=== PATIENT | female | born 1940 | race Caucasian/White ===

== ENCOUNTER 2016-07-25 11:23 | Inpatient (IN) | payer MEDICARE, OTHER ==
[~2016-07-25] VITALS: Ht 154.9 cm; Wt 76.2 kg
[2016-07-25 14:50] VITALS: BP 161/117
--- NOTE | 2016-07-25 14:50 | NUR ---
ADMISSION NOTES/ PATIENT 65 Y/OLD FEMALE DIRECT ADMIT FROM [facility] BROUGHT BY AMBULANCE ON 5150 HOLD, DX OF SI, DEPRESSION, DTS, PSYCHOSIS NOS. ACCORDING ON HOLD PATIENT CUTTING HER WRIST AND EXPLAINS SHE ARE SO IN A MOMENT OF DESPERATION. ALSO VERBALIZED FEELING FRUSTRATED ABOUT HER PHYSICAL LIMITATION AND SHE CUT HERSELF IN ORDER TO FEEL WHAT PAIN FEELS LIKE. ON FACE TO FACE ASSESSMENT PATIENT A/O X2/3, IRRITABLE, DISORGANIZED THOUGHTS, ANXIOUS, DEPRESS, IMPULSIVE. V/S TAKE BP -167/100, P-90, R-19, 02-98 ROOM AIR, T-98. PATIENT DENIED SI/HI AT THIS TIME, NO RESPIRATORY DISTRESS. SKIN ASSESSMENT DONE, PICTURE TAKEN. PATIENT'S RIGHT HAND BOOK GIVEN, AND EXPLAINED TO. PT AMBULATORY USING WALKER, CONTINENT. SAFETY PRECAUTION MAINTAINED ALL THE TIME. MRSA OF NARES TAKEN. PT REFUSED SIGN PAPERWORK. Dr. YOUNGER, AND DR BURKS AWARE OF NEW PATIENT , AND NEW MEDICATION. CONTINUED MONITORING.
[2016-07-25] MEDS ORDERED: MAGNESIUM HYDROXIDE 30 ML UDC PO PRN (15:00)
[2016-07-25] MEDS ORDERED: ACETAMINOPHEN 325 MG TABLET PO PRN ×2 (15:00→22:30)
[2016-07-25 15:15] VITALS: BP 155/100
[2016-07-25] MEDS: LORAZEPAM 0.5 MG TABLET PO PRN (16:28)
--- NOTE | 2016-07-25 16:28 | NUR ---
ADMINISTERED ATIVAN 0.5 MG PO PRN FOR ANXIETY, DEPRESSION, IRRITABLE, PARANOIA, V/S TAKE BP-161/117, P-90, CONTINUED MONITORING.
[2016-07-25] MEDS ORDERED: DULO20CA PO (18:49)
[2016-07-25] MEDS ORDERED: TRAZ-144 PO ×2 (18:49→20:06)
[2016-07-25] MEDS ORDERED: DIAZ5TAB PO ×2 (18:49→20:06)
--- NOTE | 2016-07-25 19:30 | NUR ---
RN NOTE; RECEIVED PT AWAKE AND ALERT. WALKING DOWN THE HALLWAY USING HER WALKER. BREATHING EVENLY. NO SOB. NO DISTRESS. NO BEHAVIORAL PROBLEM. W/ C/O CHRONIC KNEE PAIN. NEEDS ATTENDED. WILL CONT TO MONITOR
[2016-07-25 19:31] VITALS: BP 153/100
[2016-07-25] MEDS ORDERED: DEXT15DR6 EACHEYE (19:46)
[2016-07-25] MEDS ORDERED: DOCU-170 PO (19:46)
[2016-07-25] MEDS ORDERED: CHLO473M2 MM (19:46)
[2016-07-25] MEDS ORDERED: BISA5TAB10 PO (19:46)
[2016-07-25] MEDS ORDERED: CALC-911 PO (19:46)
[2016-07-25] MEDS ORDERED: DULO20CA18 PO (19:46)
[2016-07-25] MEDS ORDERED: DIPH25CA83 PO (19:46)
[2016-07-25] MEDS ORDERED: SALI45LI MM (19:46)
[2016-07-25] MEDS ORDERED: BISA10SU8 RC (19:46)
[2016-07-25] MEDS ORDERED: SENN8.6T60 PO (19:46)
[2016-07-25] MEDS ORDERED: FLUT15.88 NS (19:46)
[2016-07-25] MEDS ORDERED: PHEN1SUP RC (19:46)
[2016-07-25] MEDS ORDERED: LIDO30AD10 TP (19:59)
[2016-07-25] MEDS ORDERED: PILO5TAB PO (19:59)
[2016-07-25] MEDS ORDERED: HYDR28.32 TP (19:59)
[2016-07-25] MEDS ORDERED: OXYC20TA58 PO (19:59)
[2016-07-25] MEDS ORDERED: HYDR-552 PO (19:59)
[2016-07-25] MEDS ORDERED: OXYB10TA PO (19:59)
[2016-07-25] MEDS ORDERED: OXYC5CAP3 PO (19:59)
[2016-07-25] MEDS ORDERED: PANT40TA2 PO (19:59)
[2016-07-25] MEDS ORDERED: GABA400C PO (19:59)
[2016-07-25] MEDS ORDERED: CALC500T13 PO (20:06)
[2016-07-25] MEDS ORDERED: SENN-18 PO (20:06)
[2016-07-25] MEDS ORDERED: ACET325T53 PO (20:06)
[2016-07-25] MEDS ORDERED: CHOL100040 PO (20:06)
[2016-07-25 20:45] VITALS: BP 152/96
[2016-07-25] MEDS: TEMAZEPAM 7.5 MG CAPSULE PO PRN (21:38)
[2016-07-25] MEDS ORDERED: diphenhydrAMINE HCL 25 MG CAPSULE PO PRN (22:30)
[2016-07-25] MEDS ORDERED: HYDROCORTISONE 1% CREAM 28.35 GM TUBE TP PRN (22:30)
[2016-07-25] MEDS ORDERED: BISACODYL SUPP (10 MG) 10 MG/SUPP.RECT SUPP.RECT RC PRN (22:30)
[2016-07-25] MEDS ORDERED: BISACODYL (5 MG) 5 MG TABLET.DR PO PRN (22:30)
[2016-07-25] MEDS ORDERED: PHENYLEPHRINE/SHARK LIVER 1 EA SUPP.RECT RC PRN (22:30)
[2016-07-25] MEDS ORDERED: CALCIUM CARBONATE 500 MG TAB.CHEW PO PRN (22:30)
[2016-07-25] MEDS ORDERED: SENNOSIDES 8.6 MG TABLET PO PRN (22:30)
--- NOTE | 2016-07-25 22:47 | NUR ---
PT WAS SEEN AND EXAMINED BY JUAN YI . MED RECON DONE.
[2016-07-26] MEDS ORDERED: HYDROCODONE/APAP 5/325MG 1 EACH TABLET ONE (03:55)
[2016-07-26] MEDS: HYDROCODONE/APAP 5/325MG 1 EACH TABLET PO PRN ×3 (04:00→20:27)
--- NOTE | 2016-07-26 04:02 | NUR ---
[place] 5 given as ordered for pt's c/o bilateral knee pain and crying . will cont to monitor .
--- NOTE | 2016-07-26 06:30 | NUR ---
RN NOTE; PT AWAKE AND ALERT. AMBULATING W/ WALKER. NO C/O PAIN OR DISCOMFORT AT TIS TIME. NO ACUTE EXCHANGES DURING THE NIGHT . ASSISTED W/ ADLS. BED LOW LOCKED. CALL BUTTON WITHIN REACH. WILL CONT TO MONITOR AND WILL ENDORSE TO AM SHIFT FOR FRANCIE.
[2016-07-26 08:00] VITALS: BP 148/93
[2016-07-26 08:17] LABS: ALBUMIN 3.6 g/dL (3.4-5.0); BILIRUBIN,TOTAL 0.7 mg/dL (0.2-1.0); CALCIUM, SERUM 8.7 mg/dL (8.5-10.1); CREATININE 0.6 mg/dL (0.6-1.3); POTASSIUM 3.3 mmol/L (3.5-5.1); TOTAL PROTEIN, SERUM 6.8 g/dL (6.4-8.2)
[2016-07-26] MEDS ORDERED: oxyCODONE HCL SR 10MG TAB.SR.12H PO SCH (09:00)
[2016-07-26] MEDS ORDERED: GABAPENTIN 400 MG CAPSULE PO SCH (09:00)
[2016-07-26] MEDS: LIDOCAINE 5% (PATCH) 1 EA PATCH TP SCH (09:00)
[2016-07-26] MEDS: CALCIUM CARBONATE 500 MG TAB.CHEW PO SCH ×2 (09:22→19:59)
[2016-07-26] MEDS: CHLORHEXIDINE GLUCONATE 15 ML UDC MM SCH ×3 (09:22→16:54)
[2016-07-26] MEDS: PANTOPRAZOLE 40 MG TABLET.DR PO SCH (09:22)
[2016-07-26] MEDS: CHOLECALCIFEROL 1,000 UNIT TABLET (VIT D3) PO SCH (09:22)
[2016-07-26] MEDS: DOCUSATE SODIUM 100 MG CAPSULE PO SCH ×2 (09:22→16:54)
[2016-07-26] MEDS: POLYVINYL ALCOHOL 15 ML BOTTLE EACHEYE SCH ×2 (10:03→17:37)
[2016-07-26] MEDS: FLUTICASONE PROPIONATE 16 GM BOTTLE NS SCH (10:03)
[2016-07-26] MEDS: SERTRALINE HCL 25 MG TABLET PO SCH (15:38)
[2016-07-26] MEDS: GABAPENTIN 400 MG CAPSULE PO SCH ×3 (15:38→20:25)
[2016-07-26 15:57] VITALS: BP 146/95
[2016-07-26] MEDS: SENNOSIDES 8.6 MG TABLET PO SCH (20:00)
[2016-07-26] MEDS: TRAZODONE 50 MG TABLET PO SCH (20:00)
[2016-07-27 08:00] VITALS: BP 148/76
[2016-07-27] MEDS: SERTRALINE HCL 25 MG TABLET PO SCH (08:24)
[2016-07-27] MEDS: CHOLECALCIFEROL 1,000 UNIT TABLET (VIT D3) PO SCH (08:24)
[2016-07-27] MEDS: GABAPENTIN 400 MG CAPSULE PO SCH ×3 (08:24→17:05)
[2016-07-27] MEDS: CALCIUM CARBONATE 500 MG TAB.CHEW PO SCH ×2 (08:24→21:22)
[2016-07-27] MEDS: PANTOPRAZOLE 40 MG TABLET.DR PO SCH (08:24)
[2016-07-27] MEDS: DOCUSATE SODIUM 100 MG CAPSULE PO SCH ×2 (08:24→17:05)
[2016-07-27] MEDS: LIDOCAINE 5% (PATCH) 1 EA PATCH TP SCH (08:25)
[2016-07-27] MEDS: FLUTICASONE PROPIONATE 16 GM BOTTLE NS SCH (08:25)
[2016-07-27] MEDS: POLYVINYL ALCOHOL 15 ML BOTTLE EACHEYE SCH ×2 (08:25→17:04)
[2016-07-27] MEDS: CHLORHEXIDINE GLUCONATE 15 ML UDC MM SCH ×3 (08:25→17:05)
[2016-07-27] MEDS: HYDROCODONE/APAP 5/325MG 1 EACH TABLET PO PRN ×4 (08:32→21:23)
[2016-07-27] MEDS ORDERED: POTASSIUM CHLORIDE 20 MEQ TAB.PRT.SR PO ONE (12:00)
--- NOTE | 2016-07-27 16:08 | NUR ---
Initial discharge plan :Pt. is a resident at [facility] [id number] and wants to return upon discharge. SW attempted to confirm readmission but not able to speak with admission at this time. SW will try again later. SW will work with pt and will help form safe and proper discharge.
[2016-07-27 20:00] VITALS: BP 140/73
[2016-07-27] MEDS: TEMAZEPAM 7.5 MG CAPSULE PO PRN (21:24)
[2016-07-27] MEDS: SENNOSIDES 8.6 MG TABLET PO SCH (21:24)
[2016-07-27] MEDS: TRAZODONE 50 MG TABLET PO SCH (21:24)
[2016-07-28] MEDS: HYDROCODONE/APAP 5/325MG 1 EACH TABLET PO PRN (07:02)
[2016-07-28 07:23] LABS: CALCIUM, SERUM 9.5 mg/dL (8.5-10.1); CREATININE 0.7 mg/dL (0.6-1.3)
[2016-07-28] MEDS: CHLORHEXIDINE GLUCONATE 15 ML UDC MM SCH ×3 (08:52→17:42)
[2016-07-28] MEDS: GABAPENTIN 400 MG CAPSULE PO SCH ×3 (08:53→17:42)
[2016-07-28] MEDS: DOCUSATE SODIUM 100 MG CAPSULE PO SCH ×2 (08:53→17:42)
[2016-07-28] MEDS: SERTRALINE HCL 25 MG TABLET PO SCH (08:53)
[2016-07-28] MEDS: PANTOPRAZOLE 40 MG TABLET.DR PO SCH (08:54)
[2016-07-28] MEDS: CHOLECALCIFEROL 1,000 UNIT TABLET (VIT D3) PO SCH (08:54)
[2016-07-28] MEDS: CALCIUM CARBONATE 500 MG TAB.CHEW PO SCH ×2 (08:54→21:16)
[2016-07-28] MEDS: FLUTICASONE PROPIONATE 16 GM BOTTLE NS SCH (09:00)
[2016-07-28] MEDS: POLYVINYL ALCOHOL 15 ML BOTTLE EACHEYE SCH ×2 (09:00→17:43)
[2016-07-28] MEDS: LIDOCAINE 5% (PATCH) 1 EA PATCH TP SCH (09:00)
[2016-07-28] MEDS: LORAZEPAM 0.5 MG TABLET PO PRN (09:04)
--- NOTE | 2016-07-28 09:04 | NUR ---
administered ativan 0.5 mg po prn for anxiety , v/s taken, p-77, bp-155/60, continued monitoring.
[2016-07-28] MEDS ORDERED: oxyCODONE HCL SR 10MG TAB.SR.12H PO PRN (09:30)
--- NOTE | 2016-07-28 11:09 | NUR ---
DR. YOUNGER GAVE AN ORDER FOR THE DENIAL RIGHTS FOR ROOM SEARCH TO LOOK FOR THE MISSING CORDLESS PHONES.
[2016-07-28] MEDS: oxyCODONE IR immediate release 5 MG CAPSULE PO PRN (12:49)
--- NOTE | 2016-07-28 12:50 | NUR ---
ADMINISTERED OXY IR 5 MG PO PRN FOR CHRONIC GENERALIZED PAIN 12/16, V/S TAKE BP - 145/67, P-77, ALSO ADMINISTERED MAALOX 30 MG/ML PO PRN FOR STOMACHACHE, CONTINUED MONITORING.
[2016-07-28] MEDS: MAG HYDROX/AL HYDROX/SIMETH 30 ML UDC PO PRN (12:57)
[2016-07-28 16:00] VITALS: BP 153/75
[2016-07-28] MEDS: TRAZODONE 50 MG TABLET PO SCH (21:17)
[2016-07-28] MEDS: oxyCODONE HCL SR 20MG TAB.SR.12H PO SCH (21:17)
[2016-07-28] MEDS: SENNOSIDES 8.6 MG TABLET PO SCH (21:18)
[2016-07-28] MEDS: TEMAZEPAM 7.5 MG CAPSULE PO PRN (23:11)
[2016-07-29 08:00] VITALS: BP 108/67
[2016-07-29] MEDS: GABAPENTIN 400 MG CAPSULE PO SCH ×3 (08:26→17:35)
[2016-07-29] MEDS: CHOLECALCIFEROL 1,000 UNIT TABLET (VIT D3) PO SCH (08:26)
[2016-07-29] MEDS: oxyCODONE HCL SR 20MG TAB.SR.12H PO SCH ×2 (08:26→22:17)
[2016-07-29] MEDS: DOCUSATE SODIUM 100 MG CAPSULE PO SCH ×2 (08:26→17:35)
[2016-07-29] MEDS: CHLORHEXIDINE GLUCONATE 15 ML UDC MM SCH ×3 (08:26→17:35)
[2016-07-29] MEDS: SERTRALINE HCL 25 MG TABLET PO SCH (08:27)
[2016-07-29] MEDS: CALCIUM CARBONATE 500 MG TAB.CHEW PO SCH ×2 (08:27→21:22)
[2016-07-29] MEDS: PANTOPRAZOLE 40 MG TABLET.DR PO SCH (08:27)
[2016-07-29] MEDS: FLUTICASONE PROPIONATE 16 GM BOTTLE NS SCH (08:44)
[2016-07-29] MEDS: POLYVINYL ALCOHOL 15 ML BOTTLE EACHEYE SCH ×2 (08:45→17:36)
[2016-07-29] MEDS: LIDOCAINE 5% (PATCH) 1 EA PATCH TP SCH (08:45)
[2016-07-29] MEDS: MAG HYDROX/AL HYDROX/SIMETH 30 ML UDC PO PRN (13:00)
--- NOTE | 2016-07-29 13:01 | NUR ---
ADMINISTERED MAALOX 30 MG/ML PO PRN FOR GERD, CONTINUED MONITORING.
[2016-07-29] MEDS: oxyCODONE IR immediate release 5 MG CAPSULE PO PRN ×2 (13:06→19:14)
--- NOTE | 2016-07-29 13:07 | NUR ---
ADMINISTERED OXY IR 5 MG PO PRN FOR CHRONIC GENERALIZED PAIN 12/16, V/S TAKEN STABLE BP-117/76, P-76, CONTINUED MONITORING.
[2016-07-29 16:00] VITALS: BP 97/59
--- NOTE | 2016-07-29 19:18 | NUR ---
ADMINISTERED OXY IR 5 MG PO PRN FOR CHRONIC GENERALIZED PAIN 9, V/S TAKEN, BP-110/62, P-88, CONTINUED MONITORING.
--- NOTE | 2016-07-29 19:20 | NUR ---
ENDORSED ONCOMING NURSE FOR CONTINUATION OF CARE, ENCOURAGED PATIENT TO INCREASE FLUID INTAKE.
[2016-07-29 20:22] VITALS: BP 134/99
[2016-07-29 20:30] VITALS: BP 134/90
[2016-07-29] MEDS: TRAZODONE 50 MG TABLET PO SCH (21:22)
[2016-07-29] MEDS: SENNOSIDES 8.6 MG TABLET PO SCH (21:22)
[2016-07-29] MEDS: TEMAZEPAM 7.5 MG CAPSULE PO PRN (22:18)
[2016-07-30] MEDS: oxyCODONE IR immediate release 5 MG CAPSULE PO PRN ×2 (04:24→12:55)
[2016-07-30] MEDS: CHLORHEXIDINE GLUCONATE 15 ML UDC MM SCH ×3 (08:45→17:46)
[2016-07-30] MEDS: LIDOCAINE 5% (PATCH) 1 EA PATCH TP SCH (08:45)
[2016-07-30] MEDS: FLUTICASONE PROPIONATE 16 GM BOTTLE NS SCH (08:45)
[2016-07-30] MEDS: POLYVINYL ALCOHOL 15 ML BOTTLE EACHEYE SCH ×2 (08:45→17:46)
[2016-07-30] MEDS: DOCUSATE SODIUM 100 MG CAPSULE PO SCH ×2 (08:46→17:46)
[2016-07-30] MEDS: SERTRALINE HCL 25 MG TABLET PO SCH (08:46)
[2016-07-30] MEDS: PANTOPRAZOLE 40 MG TABLET.DR PO SCH (08:46)
[2016-07-30] MEDS: CALCIUM CARBONATE 500 MG TAB.CHEW PO SCH ×2 (08:46→21:29)
[2016-07-30] MEDS: GABAPENTIN 400 MG CAPSULE PO SCH ×3 (08:46→17:46)
[2016-07-30] MEDS: CHOLECALCIFEROL 1,000 UNIT TABLET (VIT D3) PO SCH (08:46)
[2016-07-30] MEDS: oxyCODONE HCL SR 20MG TAB.SR.12H PO SCH ×2 (08:47→21:28)
[2016-07-30 09:04] VITALS: BP 141/80
--- NOTE | 2016-07-30 12:36 | NUR ---
DEYA spoke with Ana (admission) and Daria (DON) from [facility] [id number] and they said pt cannot return as she is not appropriate for their facility. Pt. has been a detention patient at the facility. SW notified them that she will speak with pt and see if pt will agree to be placed at a different facility.
--- NOTE | 2016-07-30 12:55 | NUR ---
ADMINISTERED OXY IR 5 MG PO PRN FOR CHRONIC GENERALIZED PAIN 12/16, V/S TAKEN , BP-135/76, P-69, CONTINUED MONITORING.
[2016-07-30 16:00] VITALS: BP 124/87
[2016-07-30] MEDS: TRAZODONE 50 MG TABLET PO SCH (21:28)
[2016-07-30] MEDS: TEMAZEPAM 7.5 MG CAPSULE PO PRN (21:29)
[2016-07-30] MEDS: SENNOSIDES 8.6 MG TABLET PO SCH (21:29)
[2016-07-30 21:42] VITALS: BP 109/74
[2016-07-30] MEDS: LORAZEPAM 0.5 MG TABLET PO PRN (22:59)
--- NOTE | 2016-07-30 23:06 | NUR ---
ATIVAN 0.5 MG PO PRN GIVEN FOR C/O ANXIETY WILL CONTINUE TO MONITOR.
[2016-07-31] MEDS: oxyCODONE IR immediate release 5 MG CAPSULE PO PRN ×2 (02:27→12:53)
--- NOTE | 2016-07-31 02:31 | NUR ---
ADMINISTERED OXY IR 5 MG PO PRN FOR CHRONIC GENERALIZED PAIN 11/15, V/S WNL WILL CONTINUED MONITORING
[2016-07-31 08:00] VITALS: BP 107/47
[2016-07-31] MEDS: DOCUSATE SODIUM 100 MG CAPSULE PO SCH ×2 (08:11→16:12)
[2016-07-31] MEDS: PANTOPRAZOLE 40 MG TABLET.DR PO SCH (08:11)
[2016-07-31] MEDS: CALCIUM CARBONATE 500 MG TAB.CHEW PO SCH ×2 (08:11→22:02)
[2016-07-31] MEDS: SERTRALINE HCL 25 MG TABLET PO SCH (08:12)
[2016-07-31] MEDS: GABAPENTIN 400 MG CAPSULE PO SCH ×3 (08:12→16:12)
[2016-07-31] MEDS: oxyCODONE HCL SR 20MG TAB.SR.12H PO SCH ×2 (08:12→22:00)
[2016-07-31] MEDS: CHLORHEXIDINE GLUCONATE 15 ML UDC MM SCH ×3 (08:12→16:12)
[2016-07-31] MEDS: CHOLECALCIFEROL 1,000 UNIT TABLET (VIT D3) PO SCH (08:12)
[2016-07-31] MEDS: POLYVINYL ALCOHOL 15 ML BOTTLE EACHEYE SCH ×2 (08:34→16:14)
[2016-07-31] MEDS: LIDOCAINE 5% (PATCH) 1 EA PATCH TP SCH (08:35)
[2016-07-31] MEDS: FLUTICASONE PROPIONATE 16 GM BOTTLE NS SCH (08:35)
--- NOTE | 2016-07-31 12:37 | NUR ---
DEYA spoke again with Ana (admission) and Daria (DON) from [facility] [id number] and they are still stating that pt. cannot return as she is not appropriate for their facility. Pt. has been a termite treater patient at the facility. fly worker will attempt to find patient another placement.
--- NOTE | 2016-07-31 15:07 | NUR ---
Faxed referral to [facility] (Address: [address] , [place] [address] ). Spoke to [facility] in admissions who stated that they have a correction bed available and she will review the paperwork. DEYA will follow up. Addendum: 07/31/16 at 1601 by KARINA FALK Spoke to [facility] who stated that Azam from the facility was going to come and assess her. DEYA informed patient and charge nurse. Patient was in agreement and stated that she would like to go there if she is accepted. DEYA will follow up.
--- NOTE | 2016-07-31 15:22 | NUR ---
Faxed referral to [facility] (Address: [address] [place] [phone] ). Spoke to Inna in admissions who stated that she will review the paperwork. DEYA will follow up.
[2016-07-31 16:00] VITALS: BP 144/70
--- NOTE | 2016-07-31 17:40 | NUR ---
Per Azam at [facility], they are able to accept the patient. Patient in agreement to be discharged to their facility located at [address] [place] [address]; [phone] FAX: [phone]). Azam stated that she can come after lunch and SW will schedule [facility] for around 1:15pm.
[2016-07-31 20:16] VITALS: BP 118/58
[2016-07-31] MEDS: SENNOSIDES 8.6 MG TABLET PO SCH (22:01)
[2016-07-31] MEDS: TRAZODONE 50 MG TABLET PO SCH (22:01)
[2016-07-31] MEDS: TEMAZEPAM 7.5 MG CAPSULE PO PRN (22:01)
[2016-08-01] MEDS: CALCIUM CARBONATE 500 MG TAB.CHEW PO SCH (07:51)
[2016-08-01] MEDS: DOCUSATE SODIUM 100 MG CAPSULE PO SCH (07:51)
[2016-08-01] MEDS: GABAPENTIN 400 MG CAPSULE PO SCH ×2 (07:51→13:38)
[2016-08-01] MEDS: CHOLECALCIFEROL 1,000 UNIT TABLET (VIT D3) PO SCH (07:51)
[2016-08-01] MEDS: CHLORHEXIDINE GLUCONATE 15 ML UDC MM SCH ×2 (07:51→13:38)
[2016-08-01] MEDS: oxyCODONE HCL SR 20MG TAB.SR.12H PO SCH (07:52)
[2016-08-01] MEDS: PANTOPRAZOLE 40 MG TABLET.DR PO SCH (07:52)
[2016-08-01] MEDS: POLYVINYL ALCOHOL 15 ML BOTTLE EACHEYE SCH (07:54)
[2016-08-01] MEDS: FLUTICASONE PROPIONATE 16 GM BOTTLE NS SCH (07:54)
[2016-08-01] MEDS: LIDOCAINE 5% (PATCH) 1 EA PATCH TP SCH (07:54)
[2016-08-01 08:00] VITALS: BP 126/77
[2016-08-01] MEDS ORDERED: SERTRALINE HCL 25 MG TABLET PO SCH (09:00)
--- NOTE | 2016-08-01 10:21 | NUR ---
Patient called the patient's rights office and spoke to Amina ([phone]). Amina wanted to speak to SW and patient stated that she is calling to complain about her old facility ([facility]) as they are not re-accepting her. Amina wanted to know why they are not re-accepting her and DEYA stated that assigned DEYA Delaney and DEYA Casillas called facility and they are not re-accepting patient due to her behaviors. Patient's bedhold also . Amina stated that she will call the geropsych unit and will continue to speak to the patient.
--- NOTE | 2016-08-01 13:54 | NUR ---
DISCHARGE NOTES/ PATIENT DISCHARGE AT THIS TIME GOING SNF. PATIENT A/O X3/4, MED COMPLIANT, V/S STABLE, MEDICALLY STABLE, NO C/O PAIN, MED RECONCILIATION AND DISCHARGE ORDER REVIEWED AND EXPLAINED TO, PATIENT DENIED SI/HI/AVH AT THIS TIME. BELONGING RETURNED BACK TO THE PATIENT. REPORT GIVEN SNF RN . RN VERBALIZED UNDERSTANDING. PATIENT CORRECTIONS LIEUTENANT BY AMBULANCE. PATIENT DENIED PICTURE TO BE TAKEN, BUT SIGN PAPERWORK.
--- NOTE | 2016-08-01 13:58 | NUR ---
Discharge Note: Patient was discharged to [facility] ([address], [place] [address] ) via [facility] ambulance. Responsible alliance party Sabina Robison ([phone]) was informed. Facility notified of the patient's arrival. Pt. agrees with discharge plan and at this time denies suicidal/homicidal ideations. Discharged paperwork was signed.
== END 2016-08-01 13:55 | DRG 881 ==
LOC: GPS 14:35
PROVIDERS: ADMIT Psychiatry & Neurology Psychosomatic Medicine; ATTEND Nurse Practitioner Acute Care
DX: F32.9 Major depressive disorder, single episode, unspecified (principal); G90.529 Complex regional pain syndrome I of unspecified lower limb; F43.10 Post-traumatic stress disorder, unspecified; E78.5 Hyperlipidemia, unspecified; G89.4 Chronic pain syndrome; K21.9 Gastro-esophageal reflux disease without esophagitis; M19.90 Unspecified osteoarthritis, unspecified site; S61.519A Laceration without foreign body of unspecified wrist, initial encounter; X78.9XXA Intentional self-harm by unspecified sharp object, initial encounter; X58.XXXS Exposure to other specified factors, sequela; F29 Unspecified psychosis not due to a substance or known physiological condition; M85.80 Other specified disorders of bone density and structure, unspecified site; M54.5 Low back pain; Z90.49 Acquired absence of other specified parts of digestive tract; Z96.652 Presence of left artificial knee joint
CPT/HCPCS: 36415; 80048-TC; 80053-TC; 97001-TC; Q0163; Z7610